=== PATIENT | female | born 1970 | race Two or more races ===

== ENCOUNTER 2024-01-04 18:51 | Emergency (ER) | payer OTHER, MEDICAID ==
[~2024-01-04] VITALS: Ht 157.5 cm; Wt 90.7 kg
[2024-01-04 19:03] VITALS: BP 160/70; PULSE 80; RESP 18; TEMP 98; O2SAT 99
[2024-01-04] MEDS: NACL 0.9% 1,000 ML IV ONE (19:43)
[2024-01-04] MEDS: diphenhydrAMINE 50 MG/ML VIAL IVP ONE (19:44)
[2024-01-04] MEDS: METOCLOPRAMIDE 10 MG/2 ML INJ VIAL IVP ONE (19:44)
[2024-01-04] MEDS: KETOROLAC 30 MG/ML VIAL IVP ONE (19:44)
[2024-01-04 21:18] VITALS: BP 158/70; PULSE 96; RESP 18; TEMP 98; O2SAT 99
== END 2024-01-04 21:18 | disposition home or self-care (01) ==
LOC: MED 18:51
DX: G43.909 Migraine, unspecified, not intractable, without status migrainosus (principal); I10 Essential (primary) hypertension; Z88.0 Allergy status to penicillin
CPT/HCPCS: 82948; 96361; 96374; 96375; 99284; J1200; J1885; J2765; J7030